=== PATIENT | male | born 1980 | race Caucasian/White ===

== ENCOUNTER 2017-02-08 22:25 | Emergency (ER) | payer OTHER ==
[~2017-02-08] VITALS: Ht 177.8 cm; Wt 79.4 kg
--- NOTE | 2017-02-09 20:39 | EKG ---
[facility] [address] [facility] [place] [address] Signed Sinus tachycardia Incomplete left bundle branch block Nonspecific ST abnormality Prolonged QT Abnormal ECG No previous ECGs available Confirmed by PREMA NOE MD ([id number] on 02/09/2017 8:39:23 PM Electronically Signed By: PREMA NOE MD 02/09/17 2039 PATIENT NAME: WAYNE COPE Electrocardiogram DATE OF : 76 PHYSICIAN: PREMA NOE MD REPORT #: [id number] REPORT IS CONFIDENTIAL AND NOT TO BE RELEASED WITHOUT AUTHORIZATION
== END 2017-02-09 00:28 | disposition home or self-care (01) ==
LOC: ED 22:25
DX: R56.9 Unspecified convulsions (principal)
CPT/HCPCS: 71010; 80053; 84146; 84484; 85025; 93005; 93010; 99284; G0480